=== PATIENT | male | born 1960 | race African-American/Black ===

== ENCOUNTER 2018-11-23 01:44 | Inpatient (IN) | payer OTHER ==
[~2018-11-23] VITALS: Ht 175.3 cm; Wt 65.9 kg
[2018-11-23] MEDS ORDERED: PROMETHAZINE HCL 25 MG/ML 1ML IV ONE (02:15)
[2018-11-23] MEDS ORDERED: SODIUM CHLORIDE 0.9% 1,000 ML IV ONE ×2 (02:15→03:30)
[2018-11-23 02:49] LABS: Basophils # (auto) 0 uL; Basophils % (auto) 0.3 % (0.0-2.0); Eosinophils # (auto) 0.1 uL; Eosinophils % (auto) 0.7 % (0.0-7.0); Hematocrit 48.9 % (41.0-53.0); Hemoglobin 16.5 g/dL (13.5-17.5); Lymphocytes # (auto) 1.1 uL; Mean Corpuscular Hemoglobin 30.3 pg (28.0-32.0); Mean Corpuscular Hgb Conc. 33.8 g/dL (32.0-36.0); Mean Corpuscular Volume 89.8 fL (80.0-100.0); Monocytes # (auto) 0.8 uL; Monocytes % (auto) 8.8 % (0.0-12.0); Neutrophils # (auto) 7.4 uL; Neutrophils % (auto) 78.2 % (37.0-80.0); Nucleated Red Blood Cells % 0.1 %; Platelet Count (auto) 160 10^3/uL (140-450); Red Blood Cells 5.44 10^6/uL (4.5-5.90); Red Cell Distribution Width 14.9 % (11.8-14.3); White Blood Cell 9.5 10^3/uL (4.4-10.8)
[2018-11-23 03:04] LABS: Albumin 4.1 g/dL (3.4-5.0); BUN/Creatinine Ratio 8.6; Calcium 9.5 mg/dL (8.5-10.1); Potassium 3.3 mmol/L (3.5-5.1)
[2018-11-23 03:13] LABS: Bilirubin, Total 1.8 mg/dL (0.2-1.0); Total Protein 7.6 g/dL (6.4-8.2)
[2018-11-23] MEDS ORDERED: MORPHINE SULFATE 4 MG/ML SYR/VIAL IV ONE ×3 (03:15→06:30)
[2018-11-23] MEDS ORDERED: IOHEXOL 300 MG/ML 100ML BOTTLE IJ ONE (03:23)
[2018-11-23] MEDS ORDERED: ONDANSETRON HCL 4 MG/2 ML VIAL IV PRN (07:15)
[2018-11-23] MEDS ORDERED: POTASSIUM CHL 20 Meq TABLET PO ONE ×2 (07:15→16:30)
[2018-11-23] MEDS ORDERED: SODIUM CHLORIDE 0.9% 1,000 ML IV SCH ×3 (07:15→17:15)
[2018-11-23] MEDS ORDERED: cloNIDine HCL 0.1 MG TAB PO PRN (07:45)
[2018-11-23] MEDS ORDERED: hydrALAZINE HCL 20 MG/ML VL IV ONE ×2 (08:45→12:00)
[2018-11-23] MEDS ORDERED: LOSA-39 PO (09:12)
[2018-11-23] MEDS ORDERED: ATOR10TA52 PO (09:14)
[2018-11-23] MEDS ORDERED: hydrALAZINE HCL 20 MG/ML VL IV PRN ×2 (09:45→14:15)
[2018-11-23] MEDS ORDERED: LOSARTAN POTASSIUM 50 MG TAB PO ONE (09:45)
[2018-11-23] MEDS: PANTOPRAZOLE 40 MG/10 ML VIAL INJ IV SCH (10:00)
[2018-11-23] MEDS ORDERED: LOSARTAN POTASSIUM 50 MG TAB PO SCH (10:00)
[2018-11-23] MEDS: MORPHINE SULFATE 4 MG/ML SYR/VIAL IV PRN ×2 (10:51→14:29)
[2018-11-23] MEDS ORDERED: DEXTROSE (50%) 50ML SYRG IV PRN (14:15)
[2018-11-23 16:30] VITALS: BP 169/14
[2018-11-23] MEDS ORDERED: LABETALOL HCL 5 MG/ML ML 20ML VIAL IV PRN (16:30)
[2018-11-23 16:31] VITALS: BP 166/115
[2018-11-23] MEDS ORDERED: METOPROLOL TARTRATE 1MG/1ML-5ML VIAL IV PRN (16:45)
[2018-11-23] MEDS ORDERED: ADENOSINE 6 MG/2 ML INJ IV ONE ×2 (17:00→18:16)
[2018-11-23] MEDS ORDERED: LACTATED RINGER'S 1,000 ML IV ONE (17:15)
[2018-11-23] MEDS: InsuLIN REG 1unit/0.01ml Soln (100units/ml) SC SCH (17:19)
[2018-11-23] MEDS: ACCU-CHEK COMFORT CURVE STRIP VI SCH (17:19)
[2018-11-23] MEDS: HYDROmorphone HCL 2 MG/ML VL IV PRN (18:52)
[2018-11-23 22:00] VITALS: BP 162/105
[2018-11-23] MEDS ORDERED: DILTIAZEM HCL 25 MG/5 ML VIAL IV ONE ×2 (22:06→22:30)
[2018-11-24] MEDS: ACCU-CHEK COMFORT CURVE STRIP VI SCH ×4 (00:06→18:00)
[2018-11-24] MEDS: InsuLIN REG 1unit/0.01ml Soln (100units/ml) SC SCH ×4 (00:20→18:02)
[2018-11-24] MEDS: HYDROmorphone HCL 2 MG/ML VL IV PRN ×4 (00:20→21:09)
[2018-11-24] MEDS ORDERED: DILTIAZEM HCL 25 MG/5 ML VIAL IV ONE ×2 (03:34→03:45)
[2018-11-24 05:00] VITALS: BP 133/90
[2018-11-24] MEDS ORDERED: AMIODARONE HCL 150 MG in D5W 5% 100 ML IV ONE (05:00)
[2018-11-24] MEDS ORDERED: AMIODARONE HCL 900 MG IV ONE (05:05)
[2018-11-24] MEDS ORDERED: AMIODARONE HCL 900 MG in DEXTROSE 500 ML IV SCH ×2 (05:06→11:06)
[2018-11-24] MEDS ORDERED: AMIODARONE HCL (50 MG/ ML) 3 ML VIAL IV ONE (05:06)
[2018-11-24 05:32] LABS: Basophils # (auto) 0 uL; Basophils % (auto) 0.1 % (0.0-2.0); Eosinophils # (auto) 0 uL; Hematocrit 49.6 % (41.0-53.0); Hemoglobin 16.5 g/dL (13.5-17.5); Lymphocytes # (auto) 0.6 uL; Lymphocytes % (auto) 5.1 % (10.0-50.0); Mean Corpuscular Hgb Conc. 33.3 g/dL (32.0-36.0); Mean Corpuscular Volume 90.3 fL (80.0-100.0); Monocytes % (auto) 8.8 % (0.0-12.0); Neutrophils # (auto) 9.8 uL; Platelet Count (auto) 148 10^3/uL (140-450); Red Blood Cells 5.49 10^6/uL (4.5-5.90); Red Cell Distribution Width 15.1 % (11.8-14.3); White Blood Cell 11.4 10^3/uL (4.4-10.8)
[2018-11-24 05:56] LABS: Albumin 3.8 g/dL (3.4-5.0); Calcium 8.1 mg/dL (8.5-10.1)
[2018-11-24 05:57] LABS: Magnesium 2.2 mg/dL (1.6-2.6)
[2018-11-24 06:01] LABS: BUN/Creatinine Ratio 12.7; Bilirubin, Total 1.4 mg/dL (0.2-1.0); Total Protein 6.5 g/dL (6.4-8.2)
[2018-11-24 06:30] LABS: Potassium 4.4 mmol/L (3.5-5.1)
[2018-11-24 09:00] VITALS: BP 143/100
[2018-11-24] MEDS ORDERED: LACTATED RINGER'S 1,000 ML IV SCH (09:30)
[2018-11-24] MEDS ORDERED: PIPERACILLIN-TAZOB 3.375GM 100 ML IV ONE (09:45)
[2018-11-24] MEDS ORDERED: LOSARTAN POTASSIUM 50 MG TAB PO SCH (10:00)
[2018-11-24] MEDS ORDERED: AMIODARONE HCL 200 MG TAB PO ONE (10:15)
[2018-11-24] MEDS: PANTOPRAZOLE 40 MG/10 ML VIAL INJ IV SCH (10:48)
[2018-11-24] MEDS: LACTATED RINGER'S 1,000 ML IV SCH ×2 (11:00→16:55)
[2018-11-24] MEDS ORDERED: METOPROLOL TARTRATE 25 MG TAB PO ONE (11:30)
[2018-11-24 13:00] VITALS: BP 138/62
[2018-11-24 15:45] VITALS: BP 157/108
[2018-11-24] MEDS ORDERED: PIPERACILLIN-TAZOB 3.375GM 100 ML IV SCH (16:00)
[2018-11-24 20:10] VITALS: BP 146/102
[2018-11-24] MEDS ORDERED: AMIODARONE HCL 200 MG TAB PO SCH (22:00)
[2018-11-24] MEDS ORDERED: METOPROLOL TARTRATE 25 MG TAB PO SCH (22:00)
== END 2018-11-24 21:50 | disposition short-term general hospital (02) | DRG 438 ==
LOC: EDBD 01:44 → ER 01:49 → OVERFLOW 01:50 → CENTRAL 16:02 → TELE-CENTR 17:46 → DOU IN ICU 11-24 15:22
PROVIDERS: ADMIT Nurse Practitioner; ATTEND Internal Medicine
DX: K85.10 Biliary acute pancreatitis without necrosis or infection (principal); N17.0 Acute kidney failure with tubular necrosis; I47.1 Supraventricular tachycardia; E11.22 Type 2 diabetes mellitus with diabetic chronic kidney disease; E11.65 Type 2 diabetes mellitus with hyperglycemia; Z68.21 Body mass index [BMI] 21.0-21.9, adult; I12.9 Hypertensive chronic kidney disease with stage 1 through stage 4 chronic kidney disease, or unspecified chronic kidney disease; F17.210 Nicotine dependence, cigarettes, uncomplicated; E78.5 Hyperlipidemia, unspecified; E66.3 Overweight; K29.00 Acute gastritis without bleeding; K57.30 Diverticulosis of large intestine without perforation or abscess without bleeding; K72.10 Chronic hepatic failure without coma; N18.9 Chronic kidney disease, unspecified; K80.20 Calculus of gallbladder without cholecystitis without obstruction; F10.10 Alcohol abuse, uncomplicated; E86.0 Dehydration; Z79.899 Other long term (current) drug therapy
CPT/HCPCS: 36415; 74177; 74181; 80053; 80061; 80320; 82140; 82150; 82962; 83036; 83605; 83690; 83735; 85025; 87081; 93005; 93306; 94761; 96361; 96374; 96375; C9113; G0378; J0153; J1815; J2543; J7060

== ENCOUNTER 2022-09-22 16:28 | Emergency (ER) | payer OTHER ==
[~2022-09-22] VITALS: Ht 180.3 cm; Wt 68.2 kg
[~2022-09-22 16:28] MED LIST: ATOR10TA52 PO; LOSA100T58 PO
[2022-09-22] MEDS ORDERED: SODIUM CHLORIDE 0.9% 1,000 ML IV ONE (17:15)
[2022-09-22 19:04] LABS: Basophils # (auto) 0 10 ^3/uL (0-0.2); Basophils % (auto) 0.2 % (0.0-2.0); Eosinophils # (auto) 0 10 ^3/uL (0-0.8); Eosinophils % (auto) 0.3 % (0.0-7.0); Hematocrit 43.7 % (41.0-53.0); Hemoglobin 14.9 g/dL (13.5-17.5); Lymphocytes # (auto) 0.7 10 ^3/uL (0.4-5.4); Lymphocytes % (auto) 9.8 % (10.0-50.0); Mean Corpuscular Hemoglobin 32.5 pg (28.0-32.0); Mean Corpuscular Hgb Conc. 34.2 g/dL (32.0-36.0); Monocytes # (auto) 0.5 10 ^3/uL (0-1.3); Monocytes % (auto) 6.9 % (0.0-12.0); Neutrophils # (auto) 5.9 10 ^3/uL (1.6-8.6); Neutrophils % (auto) 82.8 % (37.0-80.0); Nucleated Red Blood Cells % 0.2 %; White Blood Cell 7.2 10^3/uL (4.4-10.8)
[2022-09-22 19:26] LABS: Albumin 3.4 g/dL (3.4-5.0); BUN/Creatinine Ratio 11.9 (10.0-20.0); Potassium 4.1 mmol/L (3.5-5.1)
[2022-09-22 19:34] LABS: Bilirubin, Total 0.6 mg/dL (0.2-1.0); Total Protein 6.2 g/dL (6.4-8.2)
[2022-09-22] MEDS ORDERED: LACTATED RINGER'S 1,000 ML IV ONE (21:00)
[2022-09-23 07:29] VITALS: BP 131/89
== END 2022-09-23 08:21 | disposition short-term general hospital (02) ==
LOC: EDBD 16:28 → ER 16:28
DX: S06.9X9A Unspecified intracranial injury with loss of consciousness of unspecified duration, initial encounter (principal); R55 Syncope and collapse; E87.8 Other disorders of electrolyte and fluid balance, not elsewhere classified; M54.2 Cervicalgia; E83.51 Hypocalcemia; E78.5 Hyperlipidemia, unspecified; I10 Essential (primary) hypertension; F17.210 Nicotine dependence, cigarettes, uncomplicated; F10.90 Alcohol use, unspecified, uncomplicated; F12.90 Cannabis use, unspecified, uncomplicated; Z90.49 Acquired absence of other specified parts of digestive tract; Z20.822 Contact with and (suspected) exposure to COVID-19; X58.XXXA Exposure to other specified factors, initial encounter; Y93.89 Activity, other specified; Y92.89 Other specified places as the place of occurrence of the external cause; Y99.8 Other external cause status
CPT/HCPCS: 36415; 70450; 71045; 72125; 80053; 80320; 84484; 85025; 87426; 93005; 96360; 99285; J7030